=== PATIENT | male | born 1960 | race Hispanic/Latino ===

== ENCOUNTER → 2021-03-19 | Day surgery (SDC) | payer OTHER ==
[~2021-03-19] MED LIST: CRESTOR10 MG PO; FENTANYL CITRATE/PF 100MCG/2 ML INJ ONE; GLIMEPIRIDE2 MG PO; HYOSCYAMINE SULFATE 0.5 MG/ML INJ ONE; JANUVIA100 MG PO; LANTUS 3ML100 UNITS/ SC; LIDOCAINE HCL 2% LOCAL INJ 5 ML SDV VIAL INJ ONE; LISINOPRIL10 MG PO; METFORMIN HCL500 MG PO; MIDAZOLAM HCL 2 MG/2 ML VIAL ONE; NEURONTIN300 MG PO; PROPOFOL IV EMULSION 10 MG/ML 20 ML VIAL ONE
[2021-03-19 11:30] VITALS: BP 120/88
[2021-03-19 11:59] LABS: % IRON SATURATION 23 % (15-50); IRON 80 ug/dL (65-175); TOTAL IRON BINDING CAPACITY 343 ug/dL (261-478); TRANSFERRIN 245 mg/dL (174-364)
[2021-03-19 12:14] LABS: WBC,FECAL (FECAL LACTOFERRIN) NEGATIVE (NEGATIVE)
[2021-03-19 12:53] LABS: C DIFFICILE TOXIN A&B AMP PROB NEGATIVE (NEGATIVE)
== END | disposition home or self-care (01) ==
LOC: OR 06:26
PROVIDERS: ATTEND Internal Medicine Gastroenterology
DX: K59.00 Constipation, unspecified (principal); K62.1 Rectal polyp; K29.50 Unspecified chronic gastritis without bleeding; B96.81 Helicobacter pylori [H. pylori] as the cause of diseases classified elsewhere; K20.90 Esophagitis, unspecified without bleeding; K64.8 Other hemorrhoids; D64.9 Anemia, unspecified; E11.9 Type 2 diabetes mellitus without complications; I10 Essential (primary) hypertension; Z88.6 Allergy status to analgesic agent; Z01.810 Encounter for preprocedural cardiovascular examination; Z79.4 Long term (current) use of insulin; Z85.3 Personal history of malignant neoplasm of breast
CPT/HCPCS: 36415; 43239; 45380; 45384; 82948; 83540; 83630; 83993; 84466; 85045; 87045; 87177; 87328; 87493; 93005; J1980; J2001; J2250; J3010

== ENCOUNTER → 2024-04-29 | Day surgery (SDC) | payer MEDICARE, OTHER ==
[2024-04-25 10:46] LABS: BASOPHILS % 0.8 % (0.0-1.0); EOSINOPHILS # (AUTO) 0.2 (0.0-0.4); EOSINOPHILS % 4.4 % (0.0-6.0); HEMOGLOBIN 13.1 g/dL (14.0-18.0); LYMPHOCYTES # (AUTO) 1.1 (1.0-3.2); LYMPHOCYTES % 21.5 % (18.0-39.1); MEAN CORPUSCULAR HEMOGLOBIN 30.3 pg (28-32); MEAN CORPUSCULAR HGB CONC 34.5 g/dL (31-35); MONOCYTES # (AUTO) 0.4 (0.2-0.8); MONOCYTES % 7.9 % (4.4-11.3); NEUTROPHILS # (AUTO) 3.4 (2.1-6.9); PLATELET COUNT 153 x10e3/uL (140-360); RED BLOOD COUNT 4.32 x10e6/uL (4.3-5.7); RED CELL DISTRIBUTION WIDTH 12.9 % (11.7-14.4)
[~2024-04-29] MED LIST changes: -FENTANYL CITRATE/PF 100MCG/2 ML INJ ONE; -HYOSCYAMINE SULFATE 0.5 MG/ML INJ ONE; +LIPITOR10 MG PO; -MIDAZOLAM HCL 2 MG/2 ML VIAL ONE
[2024-04-29] MEDS: LACTATED RINGER'S 1,000 ML ONE (13:48)
[2024-04-29 15:32] VITALS: TEMP 97.6
[2024-04-29 15:45] VITALS: BP 134/70; PULSE 55; RESP 16; O2SAT 100
== END | disposition home or self-care (01) ==
LOC: OR 12:38
PROVIDERS: ATTEND Internal Medicine Gastroenterology
DX: Z12.11 Encounter for screening for malignant neoplasm of colon (principal); K64.8 Other hemorrhoids; I10 Essential (primary) hypertension; E78.5 Hyperlipidemia, unspecified; E11.9 Type 2 diabetes mellitus without complications; Z91.041 Radiographic dye allergy status; Z01.810 Encounter for preprocedural cardiovascular examination; Z01.812 Encounter for preprocedural laboratory examination; Z79.84 Long term (current) use of oral hypoglycemic drugs; Z79.4 Long term (current) use of insulin; Z79.899 Other long term (current) drug therapy; Z85.3 Personal history of malignant neoplasm of breast; Z92.21 Personal history of antineoplastic chemotherapy; Z92.3 Personal history of irradiation
CPT/HCPCS: 36415 ×2; 82948; 85025; 93005; G0121; J2001; J2704; J7121; 45378

== ENCOUNTER → 2024-06-10 | Day surgery (SDC) | payer MEDICARE ==
[2024-06-06 10:44] LABS: BASOPHILS % 0.6 % (0.0-1.0); EOSINOPHILS # (AUTO) 0.3 (0.0-0.4); EOSINOPHILS % 6.1 % (0.0-6.0); HEMATOCRIT 37.2 % (38.2-49.6); HEMOGLOBIN 12.8 g/dL (14.0-18.0); LYMPHOCYTES # (AUTO) 1.3 (1.0-3.2); LYMPHOCYTES % 23.8 % (18.0-39.1); MEAN CORPUSCULAR HEMOGLOBIN 30.1 pg (28-32); MEAN CORPUSCULAR HGB CONC 34.4 g/dL (31-35); MEAN CORPUSCULAR VOLUME 87.5 fL (81-99); MONOCYTES # (AUTO) 0.5 (0.2-0.8); MONOCYTES % 8.6 % (4.4-11.3); NEUTROPHILS # (AUTO) 3.2 (2.1-6.9); NEUTROPHILS % 60.5 % (38.7-80.0); PLATELET COUNT 141 x10e3/uL (140-360); RED BLOOD COUNT 4.25 x10e6/uL (4.3-5.7); RED CELL DISTRIBUTION WIDTH 13.2 % (11.7-14.4); WHITE BLOOD COUNT 5.25 x10e3/uL (4.8-10.8)
[~2024-06-10] MED LIST changes: +MIDAZOLAM HCL 2 MG/2 ML VIAL ONE; -PROPOFOL IV EMULSION 10 MG/ML 20 ML VIAL ONE; +PROPOFOL IV EMULSION 10 MG/ML 50 ML VIAL IV ONE
[2024-06-10] MEDS: LACTATED RINGER'S 1,000 ML ONE (08:08)
[2024-06-10 10:16] VITALS: TEMP 97.3
[2024-06-10 10:45] VITALS: BP 122/76; PULSE 56; RESP 18; O2SAT 100
== END | disposition home or self-care (01) ==
LOC: OR 07:08
PROVIDERS: ATTEND Internal Medicine Gastroenterology
DX: Z12.11 Encounter for screening for malignant neoplasm of colon (principal); K64.1 Second degree hemorrhoids; Z91.041 Radiographic dye allergy status; I10 Essential (primary) hypertension; E78.5 Hyperlipidemia, unspecified; E11.9 Type 2 diabetes mellitus without complications; N28.9 Disorder of kidney and ureter, unspecified; Z01.810 Encounter for preprocedural cardiovascular examination; Z01.812 Encounter for preprocedural laboratory examination; Z79.4 Long term (current) use of insulin; Z79.84 Long term (current) use of oral hypoglycemic drugs; Z79.899 Other long term (current) drug therapy; Z85.3 Personal history of malignant neoplasm of breast; Z92.21 Personal history of antineoplastic chemotherapy; Z92.3 Personal history of irradiation
CPT/HCPCS: 36415; 85025; 93005; G0121; J2001; J2250; J2704; J7121; 45378